=== PATIENT | female | born 1940 | race Caucasian/White ===

== ENCOUNTER 2016-12-12 16:32 | Inpatient (IN) | payer MEDICARE ==
[~2016-12-12] VITALS: Ht 175.3 cm; Wt 113.6 kg
--- NOTE | ~2016-12-12 | PSY ---
PATIENT NAME:YUE BROOKS MEDICAL RECORD: [id number] : 40 LOCATION:[facility] Y[facility]0 ADMISSION DATE: 12/12/16 ACCOUNT: [id number] PSYCHIATRIC EVALUATION DATE OF EVALUATION: 12/13/16 Initial Psychiatric Workup IDENTIFYING DATA: This is the first Skilled Nursing admission for this 76-year-old single white female. CHIEF COMPLAINT: None offered. HISTORY OF PRESENT ILLNESS: This patient was brought to the Emergency Department by her son. The patient had been showing markedly worsened confusion and had begun wandering away from her home unclothed. On assessment in the Emergency Room, the patient was quite confused and disoriented and has continued to give evidence of disorientation since being admitted to the hospital. No further details of any previous psychiatric history are currently available. PAST MEDICAL HISTORY: Significant for cerebrovascular accident in the past. The patient does have a history of severe cognitive deficits and has previously received a diagnosis of vascular dementia. In addition, the patient has a history of hypertension, elevated liver enzymes, hyperglycemia, congestive heart failure and elevated ammonia levels. The patient also has history of hypothyroidism. MEDICATION: At the time of admission included Norvasc 10 mg daily, clonidine 0.1 mg twice a day, Pepcid 20 mg daily, Lasix 20 mg twice a day, levothyroxine 150 mcg daily, Lopressor 12.5 mg twice a day and potassium 10 mEq twice a day. ALLERGIES: None listed. FAMILY HISTORY: Noncontributory. SOCIAL HISTORY: The patient evidently is a . She has a son who is involved in her care. It is not known whether the patient has experienced any substance abuse problems. MENTAL STATUS: On exam, the patient is pleasant and orients well to the examiner. She makes fairly good eye contact; however, she appears quite confused. Mood is for the most part euthymic. Affect is very shallow. Speech is repetitive. She simply vocalizes the word yes over and over. The patient does appear to have some ability to process auditory information as she did react to a comment that I made to another patient nearby after our interview had completed. Thought content is difficult to assess, but does not appear to be overtly positive for psychosis. The patient appears to be oriented only to self. She shows severe deficits in all phases of cognition and memory. DIAGNOSTIC IMPRESSION: AXIS I: Vascular dementia with behavioral disturbance. AXIS II: No diagnosis. AXIS III: Hypothyroidism, hypertension, vascular dementia, history of cerebrovascular accident, elevated liver enzymes and past congestive heart failure. AXIS IV: Severe. AXIS V: 36. PLAN: 1. The patient is admitted for further medical and psychiatric workup. 2. We will get neuropsychological testing. 3. Adjust medications as indicated. 4. Daily supportive therapy. TRANSINT:[id number] Voice Confirmation ID: [id number] DOCUMENT ID: [id number] MERVAT MCDOWELL III, MD CC: [id number] DICTATION DATE: 12/13/16 1131 PROMOTIONS EXECUTIVE: 12/13/16 1714 ADM IN [facility] [address] [id number]
[2016-12-12 17:44] LABS: BASOPHILS 0.2 % (0-2); EOSINOPHILS 0.2 % (0-7); HEMATOCRIT 40.5 % (36.0-48.0); HEMOGLOBIN 13.6 g/dL (12-16); IMMATURE GRANULOCYTES 0.3 % (0-5); LYMPHOCYTES 5.4 % (15-50); MCH 28.6 pg (26.0-34.0); MCHC 33.6 g/dL (31.0-37.0); MCV 85.1 fL (80.0-100.0); NEUTROPHILS 87.9 % (40-80); PLATELET COUNT 287 10x3/uL (130-400); RBC 4.76 10x6/uL (4.00-5.40); RDW 14.1 % (11.5-14.5); WBC 10.8 10x3/uL (4.8-10.8)
[2016-12-12 18:03] LABS: ALBUMIN 2.6 g/dL (3.4-5.0); ANION GAP 16.5 mmol/L (8-16); BILIRUBIN - TOTAL 0.53 mg/dL (0.2-1.3); CALCIUM 9.6 mg/dL (8.5-10.1); CARBON DIOXIDE 22.7 mmol/L (21.0-32.0); CREATININE - SERUM 1.4 mg/dL (0.6-1.3); POTASSIUM - SERUM 3.2 mmol/L (3.5-5.1); PROTEIN - SERUM 8.6 g/dL (6.4-8.2)
[2016-12-12 19:11] LABS: APPEARANCE CLEAR (CLEAR); BILIRUBIN NEGATIVE (NEGATIVE); COLOR YELLOW (YELLOW); GLUCOSE NEGATIVE (NEGATIVE); KETONE NEGATIVE (NEGATIVE); LEUKOCYTE ESTERASE NEGATIVE (NEGATIVE); NITRITE NEGATIVE (NEGATIVE); PROTEIN 1+ mg/dL (NEGATIVE); SPECIFIC GRAVITY 1.015 (1.005-1.020); UROBILINOGEN NORMAL (NORMAL)
[2016-12-12 19:22] LABS: UDS - AMPHET NEGATIVE QUAL (NEGATIVE); UDS - BARB NEGATIVE QUAL (NEGATIVE); UDS - BENZO NEGATIVE QUAL (NEGATIVE); UDS - COCAINE NEGATIVE QUAL (NEGATIVE); UDS - METH NEGATIVE QUAL (NEGATIVE); UDS - OPIATE NEGATIVE QUAL (NEGATIVE); UDS - PCP NEGATIVE QUAL (NEGATIVE); UDS - THC NEGATIVE QUAL (NEGATIVE)
--- NOTE | 2016-12-13 00:36 | NUR ---
Patient arrived at 2320 from E.D. accompanied by staff and her son, code status Full Code, alert and nonverbal except for yes and no, consents signed, night time medications given in E.D., physician aware, patient admited due to wandering from home unclothed.
[2016-12-13] MEDS ORDERED: SYNTHROID150 MCG PO (02:33)
[2016-12-13] MEDS ORDERED: LOPRESSOR25 MG PO (02:34)
[2016-12-13] MEDS ORDERED: NORVASC10 MG PO (02:35)
[2016-12-13] MEDS ORDERED: PEPCID20 MG PO (02:35)
[2016-12-13] MEDS ORDERED: CATAPRES0.1 MG PO (02:36)
[2016-12-13] MEDS ORDERED: LASIX20 MG PO (02:37)
[2016-12-13] MEDS ORDERED: ATIVAN0.5 MG PO (02:40)
[2016-12-13] MEDS ORDERED: POTASSIUM CHLO10 ME1 PO (02:41)
[2016-12-13 05:09] VITALS: BP 174/68; BMI 37.0
[2016-12-13 06:20] LABS: BASOPHILS 0.3 % (0-2); EOSINOPHILS 1.9 % (0-7); HEMATOCRIT 39.8 % (36.0-48.0); HEMOGLOBIN 13.4 g/dL (12-16); IMMATURE GRANULOCYTES 0.3 % (0-5); LYMPHOCYTES 15.1 % (15-50); MCH 28.8 pg (26.0-34.0); MCHC 33.7 g/dL (31.0-37.0); MCV 85.4 fL (80.0-100.0); MEAN PLATELET VOLUME 11.4 fL (7.4-10.4); MONOCYTES 8.5 % (2-11); NEUTROPHILS 73.9 % (40-80); PLATELET COUNT 269 10x3/uL (130-400); RBC 4.66 10x6/uL (4.00-5.40); RDW 14.3 % (11.5-14.5)
[2016-12-13 06:22] LABS: WBC 6.8 10x3/uL (4.8-10.8)
[2016-12-13 06:29] LABS: HEMOGLOBIN A1C 6.2 % (4.8-6.0)
[2016-12-13 06:55] LABS: ALBUMIN 2.3 g/dL (3.4-5.0); ANION GAP 11.2 mmol/L (8-16); BILIRUBIN - TOTAL 0.66 mg/dL (0.2-1.3); CALCIUM 9.4 mg/dL (8.5-10.1); CHOL - HDL RATIO 2.3 ratio (2.3-4.1); CREATININE - SERUM 1.2 mg/dL (0.6-1.3); LDL-HDL RATIO 1.1 ratio (1.5-3.5); POTASSIUM - SERUM 3.2 mmol/L (3.5-5.1); PROTEIN - SERUM 8.6 g/dL (6.4-8.2); THYROID STIMULATING HORMONE 0.74 uIU/mL (0.36-3.74)
--- NOTE | 2016-12-13 08:00 | NUR ---
PATIENT IS AWAKE AND ALERT, SHE IS NOT ABLE TO SPEAK EXCEPT TO MAKE AND "S" SOUND OR SAY YES OR NO, SHE IS COMPLIANT, SHE LISTENS AND UNDERSTANDS, S.L. IN LEFT A/C. SHE AMBULATES INDEPENDENTLY. NO HX DONE PATIENT NOT ABLE TO PROVIDE ANSWERS AND SHE IS AN APS CASE. I) PROVIDE PRESCRIBED MEDS. R) PATIENT IS COMPLIANT WITH MEDS AND SHE LISTENS IN GROUPS. P) CONTINUE POC.
[2016-12-13 08:30] VITALS: BP 148/99
[2016-12-13 10:26] VITALS: BMI 36.9
--- NOTE | 2016-12-13 21:00 | NUR ---
RECEIVED IN DAYROOM SITTING IN CHAIR WATCHING TV. UNABLE TO SPEAK, EXCEPT FOR YES AND NO. CALM AND COOPERATIVE WITH CARE. ASSESSMENT COMPLETED PER FLOW SHEET. ADMINISTER PRESCRIBED MEDS. VSS. COMPLIANT WITH TAKING MEDS. REDIRECT AND REORIENT NEEDED. CONTINUE PLAN OF CARE.
[2016-12-13 22:04] VITALS: BP 140/70
[2016-12-14 06:15] LABS: RAPID PLASMA REAGIN Non Reactive (Non Reactive)
[2016-12-14 06:50] LABS: BASOPHILS 0.5 % (0-2); EOSINOPHILS 5.2 % (0-7); HEMATOCRIT 42.3 % (36.0-48.0); HEMOGLOBIN 14.3 g/dL (12-16); IMMATURE GRANULOCYTES 0.2 % (0-5); LYMPHOCYTES 19.5 % (15-50); MCH 28.9 pg (26.0-34.0); MCHC 33.8 g/dL (31.0-37.0); MCV 85.6 fL (80.0-100.0); MEAN PLATELET VOLUME 11.2 fL (7.4-10.4); MONOCYTES 9.1 % (2-11); NEUTROPHILS 65.5 % (40-80); PLATELET COUNT 261 10x3/uL (130-400); RBC 4.94 10x6/uL (4.00-5.40); RDW 14.5 % (11.5-14.5); WBC 6.6 10x3/uL (4.8-10.8)
[2016-12-14 07:01] LABS: HEMOGLOBIN A1C 6.2 % (4.8-6.0)
[2016-12-14 07:17] LABS: ALBUMIN 2.5 g/dL (3.4-5.0); BILIRUBIN - TOTAL 0.6 mg/dL (0.2-1.3); CALCIUM 9.1 mg/dL (8.5-10.1); CARBON DIOXIDE 27.9 mmol/L (21.0-32.0); CREATININE - SERUM 1.5 mg/dL (0.6-1.3); PROTEIN - SERUM 9.2 g/dL (6.4-8.2)
[2016-12-14 07:20] LABS: POTASSIUM - SERUM 3.9 mmol/L (3.5-5.1)
[2016-12-14 07:27] LABS: FOLATE (FOLIC ACID) - SERUM >20.0 ng/mL (>3.0)
[2016-12-14 09:48] VITALS: BP 157/84
[2016-12-14 12:02] LABS: APPEARANCE CLEAR (CLEAR); COLOR YELLOW (YELLOW); LEUKOCYTE ESTERASE NEGATIVE (NEGATIVE); NITRITE NEGATIVE (NEGATIVE); SPECIFIC GRAVITY 1.015 (1.005-1.020)
[2016-12-14 12:03] LABS: BILIRUBIN NEGATIVE (NEGATIVE); GLUCOSE NEGATIVE (NEGATIVE); KETONE NEGATIVE (NEGATIVE); PROTEIN 2+ mg/dL (NEGATIVE); UROBILINOGEN NORMAL (NORMAL)
[2016-12-14 12:06] LABS: BACTERIA FEW /hpf (NONE SEEN); EPITHELIAL CELLS 25-50 /hpf (0-5); RED CELLS - URINE 0-5 /hpf (0-5); WHITE CELLS - URINE 0-5 /hpf (0-5)
[2016-12-14 12:07] LABS: GRANULAR CAST 0-5 /lpf (NONE SEEN)
[2016-12-14 14:28] VITALS: Ht 175.3 cm; Wt 113.6 kg
--- NOTE | 2016-12-14 15:47 | NUR ---
Alert and oriented to name , pleasant and calm. has had several CVA and only responds yes or no and can write some. Redirect and reorient as need. Monitor medication compliance and safety. Follows directions and is cooperative. No inappropriate behavior. Safety maintained. Continue plan of care.
[2016-12-14 19:30] VITALS: BP 167/79
--- NOTE | 2016-12-15 01:59 | NUR ---
B) Recieved patient in the day room, alert and oriented to name, patient is nonverbal except for yes and no answers, calm and cooperative with care and assessment, I) Administered perscribed medications, monitored for safety, R) Medication compliant, pleasant and friendly, P) Continue plan of care.
[2016-12-15 08:53] VITALS: BP 160/76
--- NOTE | 2016-12-15 11:51 | PN ---
PATIENT:YUE BROOKS MEDICAL RECORD: [id number] LOCATION:[facility] Martin[facility]ena112 ADMISSION DATE: 12/12/16 PROGRESS NOTE DATE OF SERVICE: 12/14/2016 Psychiatric Progress Note SUBJECTIVE: The patient's case was discussed with staff. She has no new complaint. OBJECTIVE: The patient is very impaired. She is less minimally verbal. Her dementia is severe. ASSESSMENT: No change in diagnoses. PLAN: The patient has not been aggressive today. She has limited insight about her situation. She does answer yes and no relatively accurately. TRANSINT:[id number] Voice Confirmation ID: [id number] DOCUMENT ID: [id number] CURTIS ORELLANA MD at 1151 CC: [id number] DICTATION DATE: 12/14/16 171 OPERATOR ENGINEER: 12/14/[address] [facility] [address] [place] [address]
--- NOTE | 2016-12-15 12:30 | NUR ---
B) PATIENT IS AWAKE AND ALERT, SHE IS PLEASANT, SHE IS NOT VERBAL EXCEPT TO SAY "YES" OR MAKE THE "S" SOUND OR "NO", PATIENT IS ORIENTED X3, SHE IS PLEASANT, SHE IS HELPFUL AND WANTS TO REMAIN INDEPENDENT. I) PROVIDE PRESCRIBED MEDS. R) PATIENT IS COMPLIANT WITH MEDS AND UNIT [facility]. P) CONTINUE POC.
[2016-12-15 19:30] VITALS: BP 115/63
--- NOTE | 2016-12-15 20:30 | NUR ---
RECEIVED IN DAYROOM SITTING IN W/C. SHE IS PLEASANT AND ALERT. NON-VERBAL DUE TO SEVERAL CVA IN PAST. I) PROVIDE PRESCRIBED MEDS. R) COMPLIANT WITH MEDS. FOLLOWS DIRECTIONS WELL. P) CONTINUE POC.
[2016-12-16 07:00] VITALS: BP 152/65
--- NOTE | 2016-12-16 14:04 | NUR ---
B) PATIENT IS SLEEPING IN A GERICHAIR IN THE DAY ROOM, SHE IS POLITE AND CALM, NO ISSUES WITH HER, SHE ONLY COMMUNICATES BY YES AND NO ANSWERS. SHE AMBULATES AND SHE IS ORIENTED X 3. I) PROVIDE PRESCRIBED MEDS. R) PATIENT IS COMPLIANT WITH MEDS AND UNIT MILIEU. P) CONTINUE POC.
[2016-12-16 21:17] VITALS: BP 167/60
--- NOTE | 2016-12-17 01:54 | NUR ---
B) Recieved patient in the day room, alert and oriented to self, calm and cooperative, nonverbal except yes/no, I) Administered perscribed medications, monitored for falls and safety, R) Medication compliant, quiet and keeps to herself, P) Continue plan of care.
[2016-12-17 07:58] VITALS: BP 189/84
[2016-12-17 11:08] VITALS: BP 142/66
--- NOTE | 2016-12-17 11:42 | NUR ---
Received this am alert and oriented to name and answers yes to hospital, patient has had previous CVA's and answers questions with "yes" or "no" is able to communicate with some writing and gesturing. Redirect and reorient as need. Emcourage group participation. Monitor safety. Pleasant, calm, cooperative with care with no behaviors. Safety maintained. Continue plan of care.
--- NOTE | 2016-12-17 14:05 | PN ---
PATIENT:YUE BROOKS MEDICAL RECORD: [id number] LOCATION:[facility] Alexis112 ADMISSION DATE: 12/12/16 PROGRESS NOTE DATE OF SERVICE: 12/15/2016 SUBJECTIVE: The patient's case was discussed with staff. She has no new complaint. OBJECTIVE: The patient denies intent to harm herself or others. She generally tolerates her medicines well. ASSESSMENT: No change in diagnoses. PLAN: Brief supportive and educational interventions were made. The patient's medicines will be maintained. Her long-term prognosis is guarded. TRANSINT:[id number] Voice Confirmation ID: [id number] DOCUMENT ID: [id number] CURTIS ORELLANA MD at 1405 CC: [id number] DICTATION DATE: 12/15/16 1153 ROTOR PILOT: 12/15/16 1212 ADM IN [id number] [place] [address]
--- NOTE | 2016-12-17 15:02 | EC ---
PATIENT:YUE BROOKS DATE OF SERVICE: 12/12/16 SEX: F MEDICAL RECORD: [id number] DATE OF : 40 LOCATION:[facility] Alexis112 AGE OF PATIENT: 76 ADMISSION DATE: 12/12/16 REFERRING PHYSICIAN: INTERPRETING PHYSICIAN: GURDEEP YOUNG MD ECHOCARDIOGRAM REPORT ECHO CHARGES 4 ECHO COMPLETE CLINICAL DIAGNOSIS: ELEVATED PROTIME/BNP / CARDIO MEGALY ON CHEST XRAY ECHOCARDIOGRAPHIC MEASUREMENTS (adult normal given) AC root (d.<3.7cm) 3.6 LV Septum d (<1.2 cm> 1.5 Valve Excursion 1.2 LV Septum (systole) 2.0 Left Atria (s.<4.0cm> 5.1 LVPW d(<1.2cm) 2.0 RV (d.<2.3cm) 4.1 LVPW (sytole) 2.1 LV diastole(<5.6CM) 4.4 MV E-F(>70mm/sec) LV systole 2.9 LVOT Diameter 1.4 MV exc.(>10mm) 2.2 Est.ejection fraction (50-75%) Pericardial Effusion N DOPPLER: LVIT A 36.0 E 124 LA RVSP 38 LVOT 104 AOP1/2T 710 Asc. Ao 236 RVOT RA PA 140 AV Gradient Peak 22.32 AV Mean 12.23 AV Area 1.3 MV Gradient Peak 10.66 MV Mean 4.01 MV Area COMMENTS: Finance Advisor: Francisco MANE Examination Proctor:1 Dr. Young TAPE# PACS DATE OF SERVICE: 12/14/2016 FINDINGS: 1. Left ventricular chamber size is within normal limits. Left ventricular systolic function is normal. Overall ejection fraction estimated at 60%. 2. Left atrium, right atrium and right ventricular chamber sizes are mildly dilated. Left atrium measures 5.1 cm. 3. Valvular structures: Aortic valve demonstrates mild calcific aortic stenosis. Valve area calculates to 1.3 cm-squared and there is a gradient of 22 mm across the valve. The remaining valvular structures have normal structure ECHOCARDIOGRAM REPORT [id number] YUE BROOKS and motion. 4. Doppler interrogation elsewise reveals mild aortic insufficiency, mild mitral regurgitation, mild to moderate tricuspid regurgitation, no other valvular insufficiency or stenosis, and pulmonary systolic pressure is estimated at 38 mmHg. 5. No evidence of pericardial effusion or left ventricular thrombus. TRANSINT:[id number] Voice Confirmation ID: [id number] DOCUMENT ID: [id number] GURDEEP YOUNG MD at 1502 CC: [id number] DICTATION DATE: 12/14/16 1510 ORACLE DEVELOPER: 12/14/16 2317 ADM IN [facility] [address] [place] [address]
--- NOTE | 2016-12-17 19:42 | NUR ---
SIMON AN. SITTING IN CHAIR WITH STAFF AND PEERS. ALERT TO SELF. CALM AND COOPERATIVE WITH CARE AND ASSESSMENTS. REDIRECT AND REORIENT NEEDED. ENCOURAGE TO EXPRESS NEEDS. CONTINUES TO SIT QUIETLY. CONTINUE PLAN OF CARE
[2016-12-17 20:13] VITALS: BP 195/76
[2016-12-18 07:43] VITALS: BP 174/75
--- NOTE | 2016-12-18 14:44 | PN ---
PATIENT:YUE BROOKS MEDICAL RECORD: [id number] LOCATION:[facility] Reuben112 ADMISSION DATE: 12/12/16 PROGRESS NOTE DATE OF SERVICE: 12/17/2016 SUBJECTIVE: The patient's case was discussed with staff. She has no new complaint. OBJECTIVE: The patient is sleeping and eating reasonably well. She has pretty limited insight about her condition. She generally tolerates her medicines well. ASSESSMENT: No change in diagnoses. PLAN: Brief supportive and educational interventions were made. The patient's long-term prognosis is guarded. TRANSINT:[id number] Voice Confirmation ID: [id number] DOCUMENT ID: [id number] CURTIS ORELLANA MD at 1444 CC: [id number] DICTATION DATE: 12/17/16 1438 BUSINESS PROCESS CONSULTANT: 12/17/16 1743 ADM IN [address] [id number] [place] [address]
[2016-12-18 15:02] VITALS: BP 151/73
--- NOTE | 2016-12-18 16:04 | NUR ---
Oriented to name and place,hqs had several past CVA and only able to say "yes/no." writes and gestures to questions. Smiles and is very pleasant and cooperative. Monitor behavior and safety. Cooperative with care with no behaviors. Safety maintained. Continue plan of care.
[2016-12-18 19:30] VITALS: BP 146/59
--- NOTE | 2016-12-18 22:53 | NUR ---
RECEIVED IN BEDROOM. SITTING ON SIDE OF BED. CALM AND COOPERTIVE WITH CARE AND ASSESSMENTS. ENCOURAGE TO EXPRESS NEEDS. RESTING IN BED WITH EYES CLOSED AT THIS TIME. CONTINUE PLAN OF CARE
[2016-12-19 08:14] VITALS: BP 163/61
[2016-12-19 11:30] VITALS: BP 154/99
--- NOTE | 2016-12-19 12:36 | NUR ---
Received this am alert and oriented to name and place, responds to questions with " yes/no". Monitor behavior and redirect for any inappropriate behavior. Pleasant and cooperative. In good behavior control no exit seeking. Safety maintained. Continue plan of care.
[2016-12-19 20:15] VITALS: BP 158/51
--- NOTE | 2016-12-20 00:26 | NUR ---
B) Recieved patient in her room alert and oriented to name and place, calm and cooperative, answers questions yes/no, I) Administered perscribed medications, monitored for safety and safety, R) Medication complaint, resting quietly, P) Continue plan of care.
[2016-12-20] MEDS ORDERED: ANUSOL-HC25 MG RC (10:57)
[2016-12-20] MEDS ORDERED: K-DUR20 MEQ PO (10:57)
[2016-12-20] MEDS ORDERED: VITAMIN D5000 UNIT PO (10:57)
[2016-12-20] MEDS ORDERED: NAMENDA5 MG PO (10:57)
[2016-12-20] MEDS ORDERED: LOPRESSOR25 MG PO (10:57)
[2016-12-20] MEDS ORDERED: LASIX40 MG PO (10:57)
--- NOTE | 2016-12-20 13:18 | NUR ---
CALLED PATIENT'S SON TO REMIND HIM THAT HE IS STILL SUPPOSED TO COME FOR 2:00 PM, FAXED ALL PAPERWORK TO DR. HOPKINS, CALLED PHARMACY AND LEFT MESSAGE.
--- NOTE | 2016-12-20 14:09 | NUR ---
SON PICKED UP PT. BELONGINGS REVIEWED AND PT SIGNED BELONGING SHEET. ALL BELONGINS SENT HOME WITH PT. MEDICATIONS AND DISCHARGE PAPERWORK REVIEWED WITH THE SON AND HE VERBALIZED UNDERSTANDING.
== END 2016-12-20 14:10 | disposition home or self-care (01) | DRG 57 ==
LOC: D.ER 16:32 → D.PSYCH 22:11
PROVIDERS: Emergency Medicine; Family Medicine; ADMIT Psychiatry & Neurology Psychiatry
DX: I69.919 Unspecified symptoms and signs involving cognitive functions following unspecified cerebrovascular disease (principal); F01.51 Vascular dementia, unspecified severity, with behavioral disturbance; K62.5 Hemorrhage of anus and rectum; E72.20 Disorder of urea cycle metabolism, unspecified; E03.9 Hypothyroidism, unspecified; I11.0 Hypertensive heart disease with heart failure; I50.9 Heart failure, unspecified; K21.9 Gastro-esophageal reflux disease without esophagitis; E55.9 Vitamin D deficiency, unspecified; E66.9 Obesity, unspecified; R73.9 Hyperglycemia, unspecified

== ENCOUNTER 2018-06-26 14:03 | Emergency (ER) | payer MEDICARE ==
[~2018-06-26] VITALS: Ht 175.3 cm; Wt 90.9 kg
--- NOTE | ~2018-06-26 | CN ---
PATIENT NAME:YUE BROOKS MEDICAL RECORD: [id number] : 40 LOCATION:.ER ADMIT DATE: ACCOUNT: [id number] CONSULTING PHYSICIAN: GURDEEP HAZEL MD REFERRING PHYSICIAN: SILVANO LOPEZ MD DATE OF CONSULTATION: 06/26/2018 ADMITTING DIAGNOSES: 1. Chest discomfort. 2. Atrial fibrillation, chronic. 3. Eliquis anticoagulation for atrial fibrillation. 4. Hypertension. 5. Status post cerebrovascular accident. 6. Hypothyroidism, on replacement. HISTORY OF PRESENT ILLNESS: [facility]. [facility] discomfort. She has no history of ischemic heart disease. She has had a CVA. She has been debilitated from the CVA. The only response she has is yes to any questions. It is very difficult to tell she has continued to have any pain. She has no ST-T abnormalities on EKG. The atrial fibrillation is controlled rate in the 50s. Her systolic blood pressures in the 160s at this time. PHYSICAL EXAMINATION: GENERAL APPEARANCE: Well-nourished, well-developed, appears stated age. Level of distress, comfortable. PSYCHIATRIC: Mental status, alert, normal affect. Orientation, oriented to time, place and person. EYES: Lids and conjunctiva, noninjected. No discharge, no pallor. ENT: Lips, teeth, gums, normal dentition. Oropharynx, no cyanosis, no pallor. NECK: Carotid arteries, bilateral normal upstroke, no bruits, no thrills. JUGULAR VEINS: No jugular venous pressure or distention. CERVICAL LYMPH NODES: Nontender, nonenlarged. THYROID: Not enlarged. Nontender. No nodules. LUNGS: Respiratory effort, unlabored. CHEST: Normal curvature. No thoracic deformity. No chest wall tenderness. Percussion, resonant. Auscultation, clear. No wheezes, no rales, no rhonchi. CARDIOVASCULAR: Precordial exam, nondisplaced. No heaves or pericardial thrills. Rate and rhythm, regular. Heart sounds, normal S1, normal S2. No S3, no gallop, no rub. Systolic murmur, not heard. Diastolic murmur, not heard. EXTREMITIES: No cyanosis, no edema. Peripheral pulses, full and equal in all extremities, except as noted. No bruits appreciated. ABDOMEN: Soft, nondistended. Normal aorta. No bruit. Nontender. No masses. Liver, nontender, no hepatomegaly. Spleen, nontender, no splenomegaly. MUSCULOSKELETAL: No joint tenderness. No joint swelling. No erythema. NEUROLOGICAL: Normal gait, normal strength, normal tone. SKIN: Warm and dry. OVERALL IMPRESSION: Chest discomfort, very difficult to tell if she is actually having cardiac discomfort, but with her debilitated state would not put her through an invasive workup, only would add a nitropatch . No other cardiac workup or treatment is necessary. TRANSINT:[id number] Voice Confirmation ID: [id number] DOCUMENT ID: [id number] CONSULT REPORT [id number] YUE BROOKS JEFFREY MD CC: [id number] DICTATION DATE: 06/26/18 1634 CAMERA PROTOTYPING ENGINEER: 06/26/18 2324 DEP ER 06/26/[address] [address]
[~2018-06-26 14:03] MED LIST: ANUSOL-HC25 MG RC; ATIVAN0.5 MG PO; CATAPRES0.1 MG PO; K-DUR20 MEQ PO; LASIX20 MG PO; LASIX40 MG PO; LOPRESSOR25 MG PO; NAMENDA5 MG PO; NORVASC10 MG PO; PEPCID20 MG PO; POTASSIUM CHLO10 ME1 PO; SYNTHROID150 MCG PO; VITAMIN D5000 UNIT PO
[2018-06-26 14:19] VITALS: Ht 175.3 cm; Wt 90.9 kg
[2018-06-26] MEDS ORDERED: BUMEX2 MG PO (14:26)
[2018-06-26] MEDS ORDERED: CARDURA4 MG PO (14:27)
[2018-06-26] MEDS ORDERED: ELIQUIS5 MG PO (14:27)
[2018-06-26] MEDS ORDERED: LIPITOR20 MG PO (14:28)
[2018-06-26] MEDS ORDERED: IPRAT-ALBUT 0.5-3 ML UPD (14:28)
[2018-06-26] MEDS ORDERED: TEMOVATE 0.05%15 G1 TOPICAL (14:29)
[2018-06-26 15:13] LABS: BASOPHILS 0.2 % (0-2); EOSINOPHILS 5.3 % (0-7); HEMATOCRIT 43.2 % (36.0-48.0); HEMOGLOBIN 14.4 g/dL (12-16); IMMATURE GRANULOCYTES 0.4 % (0-5); LYMPHOCYTES 13.6 % (15-50); MCH 29.3 pg (26.0-34.0); MCHC 33.3 g/dL (31.0-37.0); MCV 87.8 fL (80.0-100.0); MONOCYTES 8.9 % (2-11); NEUTROPHILS 71.6 % (40-80); PLATELET COUNT 195 10x3/uL (130-400); RBC 4.92 10x6/uL (4.00-5.40); RDW 15.2 % (11.5-14.5); WBC 9.5 10x3/uL (4.8-10.8)
[2018-06-26 15:30] LABS: ALBUMIN 2.8 g/dL (3.4-5.0); ALKALINE PHOSPHATASE 151 U/L (46-116); ALT (SGPT) 65 U/L (10-68); BILIRUBIN - TOTAL 0.79 mg/dL (0.2-1.3); CALC OSMOLALITY 290 mosm/kg (275-300); CALCIUM 8.8 mg/dL (8.5-10.1); CARBON DIOXIDE 33.8 mmol/L (21.0-32.0); CHLORIDE - SERUM 99 mmol/L (98-107); CREATININE - SERUM 1.7 mg/dL (0.6-1.3); GLUCOSE 173 mg/dL (74-106); POTASSIUM - SERUM 3.3 mmol/L (3.5-5.1); PROTEIN - SERUM 8.1 g/dL (6.4-8.2); SODIUM 138 mmol/L (136-145); UREA NITROGEN 44 mg/dL (7-18); eGFR NON AFRICAN AMERICAN 31 mL/min (90-120)
[2018-06-26 15:41] LABS: CKMB 1.8 U/L (0.0-3.6); CREATINE KINASE 42 UL (21-215); TROPONIN-I 0.052 ng/mL (0.000-0.060)
[2018-06-26] MEDS ORDERED: NITRO-DUR0.2 MG TRANSDERM (16:41)
[2018-06-26 17:44] VITALS: BP 143/62
== END 2018-06-26 17:46 | disposition home or self-care (01) ==
LOC: D.ER 14:03
PROVIDERS: Family Medicine
DX: R07.9 Chest pain, unspecified (principal); I48.91 Unspecified atrial fibrillation; Z86.73 Personal history of transient ischemic attack (TIA), and cerebral infarction without residual deficits; E87.6 Hypokalemia; N28.9 Disorder of kidney and ureter, unspecified; I10 Essential (primary) hypertension